=== PATIENT | female | born 1955 | race Caucasian/White ===

== ENCOUNTER 2022-05-14 10:01 | Outpatient (CLI) | payer BC | END 2022-05-14 10:02 | disposition home or self-care (01) | LOC: BICMAMMO 10:01 | PROVIDERS: ATTEND Advanced Practice Midwife | DX: Z12.31 Encounter for screening mammogram for malignant neoplasm of breast (principal); N64.89 Other specified disorders of breast | CPT/HCPCS: 77063; 77067 ==

== ENCOUNTER 2022-07-05 08:37 | Outpatient (CLI) | payer BC | END 2022-07-05 08:38 | disposition home or self-care (01) | LOC: BICMAMMO 08:37 | PROVIDERS: ATTEND Advanced Practice Midwife | DX: N64.89 Other specified disorders of breast (principal) | CPT/HCPCS: G0279 ==

== ENCOUNTER 2022-12-15 10:04 | Outpatient (CLI) | payer MEDICARE | END 2022-12-15 10:05 | disposition home or self-care (01) | LOC: BICMRI 10:04 | PROVIDERS: ATTEND Orthopaedic Surgery | DX: S46.011A Strain of muscle(s) and tendon(s) of the rotator cuff of right shoulder, initial encounter (principal); S43.431A Superior glenoid labrum lesion of right shoulder, initial encounter ==

== ENCOUNTER 2023-01-03 11:06 | Outpatient (CLI) | payer MEDICARE ==
[2023-01-03 12:28] LABS: #Basophils 0.1 10x3/uL (0.0-0.2); #Eosinphils 0.1 10x3/uL (0.0-0.5); #Monocytes 0.7 10x3/uL (0.0-1.1); #Neutrophils 5.8 10x3/uL (1.5-8.4); %Basophils 0.7 % (0.0-2.0); %Eosinophils 1.2 % (0.0-6.0); %Monocytes 7.7 % (0.0-10.0); Hematocrit 41.9 % (34.9-44.5); Hemoglobin 13.8 g/dL (12.0-15.5); Mean Corpuscular HGB CONC 32.9 g/dL (32.0-36.0); Mean Corpuscular Hemoglobin 31.4 pg (27.0-33.0); Mean Corpuscular Volume 95.2 fl (81.6-98.3); Platelet Count 323 10x3/uL (150-450); RBC Distribution Width 12.9 % (11.5-14.5)
[2023-01-03 13:08] LABS: Anion Gap 13 mmol/L (10-20); BUN (Urea Nitrogen) 20 mg/dL (9.8-20.1); Calc. Creatinine Clearance 0 mL/min (70-130); Calcium 9.7 mg/dL (7.8-10.44); Carbon Dioxide 27 mmol/L (23-31); Chloride 103 mmol/L (98-107); Estimated GFR 90; Glucose 87 mg/dL (80-115); Potassium 4.1 mmol/L (3.5-5.1); Sodium 139 mmol/L (136-145)
== END 2023-01-03 11:07 | disposition home or self-care (01) ==
LOC: LABBT 11:06
PROVIDERS: ATTEND Orthopaedic Surgery
DX: Z01.818 Encounter for other preprocedural examination (principal); S46.011A Strain of muscle(s) and tendon(s) of the rotator cuff of right shoulder, initial encounter
CPT/HCPCS: 80048; 85025; 93005; 93010

== ENCOUNTER 2023-01-06 10:37 | Day surgery (SDC) | payer MEDICARE ==
[2023-01-03 11:44] VITALS: BMI 23.9
[2023-01-06] MEDS ORDERED: PROPOFOL 20 ML ONE (11:05)
[2023-01-06] MEDS ORDERED: Ropivacaine 0.5% HCl/PF (150 MG/30 ML VIAL) ONE (11:32)
[2023-01-06] MEDS ORDERED: Ropivacaine 0.2% HCl/PF 20 ML ONE (11:32)
[2023-01-06] MEDS ORDERED: fentaNYL 50 mcg/mL 1 mL Vial ONE ×3 (11:32→15:34)
[2023-01-06] MEDS ORDERED: Midazolam HCl 2 mg/2 ml Vial ONE (11:32)
[2023-01-06] MEDS ORDERED: fentaNYL 50 mcg/mL 1 mL Vial SLOW IVP PRN (12:55)
[2023-01-06] MEDS ORDERED: Lidocaine 1% (PF) 30 ML VIAL ONE (12:56)
[2023-01-06] MEDS ORDERED: CEFAZOLIN 2 GM VIAL ONE (12:56)
[2023-01-06] MEDS ORDERED: EPINEPHrine 1 MG/ML VIAL ONE (12:56)
[2023-01-06] MEDS ORDERED: Promethazine HCl 25 MG/ML VIAL IM PRN (13:00)
[2023-01-06] MEDS ORDERED: HYDROcodone/Acetaminophen 10/325 mg Tablet PO PRN ×2 (13:00)
[2023-01-06] MEDS ORDERED: Ondansetron PF 4 MG/2 ML Vial IVP PRN (13:00)
[2023-01-06] MEDS ORDERED: Zolpidem Tartrate 5 MG TAB PO PRN (13:00)
[2023-01-06] MEDS ORDERED: Ropivacaine 0.2% 550 ML 550 ML NERVE BLCK SCH (13:00)
[2023-01-06] MEDS ORDERED: traMADol HCl 50 MG TAB PO PRN ×2 (13:00)
[2023-01-06] MEDS ORDERED: PROPOFOL 200 MG/20 ML VIAL ONE (13:32)
[2023-01-06] MEDS ORDERED: Dexamethasone 20 MG/5 ML VIAL ONE (13:32)
[2023-01-06] MEDS ORDERED: Ketorolac Tromethamine 30 MG/ML VIAL ONE ×2 (13:32→15:06)
[2023-01-06] MEDS ORDERED: PHENYLEPHRINE-NS 100 MCG/ML 10 ML SYRINGE ONE ×2 (13:32→13:58)
[2023-01-06] MEDS ORDERED: Rocuronium Bromide 10 MG/ML (10ML VIAL) ONE (13:32)
[2023-01-06] MEDS ORDERED: Ondansetron PF 4 MG/2 ML Vial ONE ×2 (13:32→14:00)
[2023-01-06] MEDS ORDERED: Dexamethasone 4 mg/ml Vial ONE (14:00)
[2023-01-06] MEDS ORDERED: Ipratropium/Albuterol 3 ML NEB ONE (15:43)
[2023-01-06] MEDS ORDERED: SUGAMMADEX SODIUM 200 MG/2 ML VIAL ONE (15:46)
[2023-01-06] MEDS ORDERED: Ketorolac Tromethamine 30 MG/ML VIAL IVP SCH (18:00)
== END 2023-01-06 18:20 | disposition home or self-care (01) ==
LOC: SDC 10:37
PROVIDERS: ATTEND Orthopaedic Surgery
PROC: 0LM14ZZ Reattachment of Right Shoulder Tendon, Percutaneous Endoscopic Approach (ICD-10-PCS; principal; 2023-01-06)
PROC: 0LS30ZZ Reposition Right Upper Arm Tendon, Open Approach (ICD-10-PCS; 2023-01-06)
DX: S43.431A Superior glenoid labrum lesion of right shoulder, initial encounter (principal); M75.121 Complete rotator cuff tear or rupture of right shoulder, not specified as traumatic; M75.21 Bicipital tendinitis, right shoulder; F41.9 Anxiety disorder, unspecified; Z79.899 Other long term (current) drug therapy; Z88.8 Allergy status to other drugs, medicaments and biological substances; Z90.710 Acquired absence of both cervix and uterus; X58.XXXA Exposure to other specified factors, initial encounter
CPT/HCPCS: 24340; 29827; A4306; C1713; J0171; J3010; J1100; J1885; J2001; J2250; J2405; J2704; J2795; J7620

== ENCOUNTER 2023-08-09 11:25 | Outpatient (CLI) | payer MEDICARE | END 2023-08-09 11:26 | disposition home or self-care (01) | LOC: BICMAMMO 11:25 | PROVIDERS: ATTEND Registered Nurse Hospice | DX: Z12.31 Encounter for screening mammogram for malignant neoplasm of breast (principal) | CPT/HCPCS: 77063; 77067 ==